=== PATIENT | male | born 1990 | race Caucasian/White ===

== ENCOUNTER 2017-11-04 11:59 | Emergency (ER) | payer BC, OTHER ==
[~2017-11-04] VITALS: Ht 190.5 cm; Wt 131.5 kg
[2017-11-04 12:12] VITALS: BP 144/87
[2017-11-04] MEDS ORDERED: FLEXERIL PO (12:17)
== END 2017-11-04 12:41 | disposition home or self-care (01) ==
LOC: ER 11:59
DX: S39.012A Strain of muscle, fascia and tendon of lower back, initial encounter (principal); X58.XXXA Exposure to other specified factors, initial encounter; Y93.89 Activity, other specified; Y92.89 Other specified places as the place of occurrence of the external cause; Y99.8 Other external cause status